=== PATIENT | male | born 1985 | race Caucasian/White ===

== ENCOUNTER 2016-07-09 11:58 | Outpatient (CLI) | payer OTHER ==
[2016-07-09 13:33] LABS: #Basophils 0.1 thou/uL (0.0-0.2); #Eosinphils 0.3 thou/uL (0.0-0.7); #Lymphocytes 3.5 thou/uL (1.20-3.40); #Monocytes 0.7 thou/uL (0.11-0.59); #Neutrophils 4.8 thou/uL (1.40-6.50); %Basophils 0.9 % (0.0-1.0); %Eosinophils 3.2 % (0.0-10.0); %Monocytes 7.5 % (0.0-10.0); Hematocrit 53.1 % (42.0-52.0); Mean Platelet Volume 6.3 fL (7.4-10.4); Red Blood Cell (RBC) Count 5.98 mill/uL (4.70-6.10); White Blood Cell (WBC) Count 9.4 thou/uL (4.8-10.8)
[2016-07-09 13:40] LABS: ALT (SGPT) 22 U/L (0-55); AST (SGOT) 12 U/L (5-34); Alkaline Phosphatase 48 U/L (40-150); Anion Gap 14 mmol/L (10-20); BUN (Urea Nitrogen) 14 mg/dL (8.9-20.6); Bilirubin, Total 0.6 mg/dL (0.2-1.2); Calc. Creatinine Clearance 0 mL/min (70-130); Calcium 9.4 mg/dL (7.8-10.44); Carbon Dioxide 24 mmol/L (22-29); Chloride 106 mmol/L (98-107); Estimated GFR-MDRD Greater than 90; Globulin 2.9 g/dL (2.4-3.5); Protein, Total 7.4 g/dL (6.0-8.3)
== END 2016-07-09 11:59 ==
LOC: HPCALD 11:58
PROVIDERS: ATTEND Family Medicine
DX: E11.9 Type 2 diabetes mellitus without complications (principal); I10 Essential (primary) hypertension; E78.00 Pure hypercholesterolemia, unspecified
CPT/HCPCS: 36415; 80053; 80061; 83036; 85025

== ENCOUNTER 2017-03-26 21:32 | Emergency (ER) | payer OTHER ==
[~2017-03-26 21:32] MED LIST: Iopamidol 370 76% 100 ML VIAL ONE
[2017-03-26] MEDS ORDERED: Morphine 2 MG/ML SYRINGE ONE (21:58)
[2017-03-26] MEDS ORDERED: diphenhydrAMINE 12.5 MG/5 ML UDCUP ONE (21:58)
[2017-03-26] MEDS ORDERED: diphenhydrAMINE 50 MG/ML VIAL ONE (22:01)
[2017-03-26 22:03] LABS: #Basophils 0.3 thou/uL (0.0-0.2); #Eosinphils 0.5 thou/uL (0.0-0.7); #Lymphocytes 4.9 thou/uL (1.20-3.40); #Monocytes 0.9 thou/uL (0.11-0.59); %Basophils 2.3 % (0.0-1.0); %Eosinophils 4.3 % (0.0-10.0); %Lymphocytes 38.6 % (21.0-51.0); %Monocytes 7.1 % (0.0-10.0); %Neutrophils 47.8 % (42.0-75.0); Mean Corpuscular HGB CONC 33.7 g/dL (32.0-36.0); Mean Corpuscular Hemoglobin 30.1 pg (27.0-31.0); Mean Corpuscular Volume 89.4 fl (80.0-94.0); Platelet Count 275 thou/uL (130-400); RBC Distribution Width 11.7 % (11.5-14.5); Red Blood Cell (RBC) Count 5.33 mill/uL (4.70-6.10); White Blood Cell (WBC) Count 12.6 thou/uL (4.8-10.8)
[2017-03-26 22:15] LABS: ALT (SGPT) 27 U/L (8-55); AST (SGOT) 17 U/L (5-34); Albumin 4.1 g/dL (3.5-5.0); Alcohol 66 mg/dL (Less than 10); Alkaline Phosphatase 46 U/L (40-150); Anion Gap 20 mmol/L (10-20); BUN (Urea Nitrogen) 11 mg/dL (8.9-20.6); Bilirubin, Total 0.3 mg/dL (0.2-1.2); Calc. Creatinine Clearance 0 mL/min (70-130); Calcium 9.2 mg/dL (7.8-10.44); Carbon Dioxide 17 mmol/L (22-29); Chloride 104 mmol/L (98-107); Estimated GFR-MDRD Greater than 90; Globulin 3.2 g/dL (2.4-3.5); Glucose 403 mg/dL (70-105); Potassium 3.5 mmol/L (3.5-5.1); Protein, Total 7.3 g/dL (6.0-8.3); Sodium 137 mmol/L (136-145)
[2017-03-26 22:17] LABS: CKMB 1.1 ng/mL (0-6.6); Troponin I Less than 0.010 ng/mL (< 0.028)
[2017-03-26 22:20] LABS: INR-International Normal Ratio 0.9; Prothrombin Time 11.8 SEC (12.0-14.7)
[2017-03-26 22:21] LABS: PTT 29.3 SEC (22.9-36.1)
[2017-03-26 22:29] LABS: D-Dimer Test 0.28 *mcg/mL (0.27-0.43)
[2017-03-26 22:49] LABS: Bilirubin Negative (Negative); Blood, Urine Negative (Negative); Clarity Clear (Clear); Glucose, Urine (Dipstick) 500 mg/dL (Negative); Leukocyte Negative (Negative); Nitrite Negative (Negative); Protein, Urine (Dipstick) Negative (Neg-Trace); Urobilinogen 0.2 mg/dL (0.2-1.0); pH, Urine 5.5 (5.0-9.0)
[2017-03-26 23:07] LABS: Amphetamine Not Detected (NotDetected); Barbiturates Screen Not Detected (NotDetected); Benzodiazepine Screen Not Detected (NotDetected); Cocaine Metabolite Screen Not Detected (NotDetected); Medtox Control Line Valid? VALID (VALID); Methadone Not Detected (NotDetected); Methamphetamine Not Detected (NotDetected); Opiate Screen Not Detected (NotDetected); Oxycodone Screen Not Detected (NotDetected); Phencyclidine (PCP) Not Detected (NotDetected); THC/Cannabinoid Screen Not Detected (NotDetected); Tricyclic Screen Not Detected (NotDetected)
[2017-03-27 01:20] LABS: Troponin I Less than 0.010 ng/mL (< 0.028)
--- NOTE | 2017-03-27 07:06 | CT ---
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 . . Ches t pain, dyspnea, weakness, been on mc ride since 11am; Has not eat or drank water today; Did have 2- 3 beers today. TECHNIQUE: Axial computed tomography images of the head/brain without intravenous contrast. COMPARISON: No relevant prior studies available. FINDINGS: No definite acute skull fracture. Included paranasal sinuses are essentially clear. No acute intracranial hemorrhage or mass effect. Ventricle size is normal for age. No definite acute infarct by CT. IMPRESSION: No acute intracranial bleed or mass effect. Thank you for allowing us to participate in the care of your patient. Dictated and Authenticated by: Jeremiah Garg MD 03/26/2017 11:17 PM Central Time ([place] \[place]\ [place]) FINAL REPORT CT OF THE BRAIN WITHOUT CONTRAST 03/26/2017 A non-contrast CT was performed following mental status changes and weakness. The ventricles are no rmal in size with no shift. No intracranial bleeding or extraaxial hematoma was seen. There is no sign of mass, edema, or stroke. The calvarium appears intact. The visible paranasal sinuses are cl ear. IMPRESSION: No acute intracranial findings. Report in agreement with the preliminary reading by [facility]. POS: HOME
--- NOTE | 2017-03-27 07:32 | RAD ---
PORTABLE CHEST: DATE: 03/26/17. FINDINGS: An AP portable film at 2148 is presented with no prior films available for comparison. He heart is normal in size. The slight haziness in the lungs is probably due to body habitus and a shallow breath. No major lobar infiltrates were seen. The mediastinum was unremarkable. The trach ea is midline. See CT of the chest report to follow. IMPRESSION: Shallow breath, but no definite acute finding. POS: HOME
--- NOTE | 2017-03-27 08:13 | CT ---
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 . . Chest pain, dyspnea, weakness, been on mc ride since 11am; Has not eat or drank water today; Did have 2-3 beers today. *d-dimer wi thin normal ranges* TECHNIQUE: Axial computed tomographic angiography images of the chest with intravenous contrast using pulmonary embolism protocol. All CT scans at this facility use one or more dose reduction techniques, viz.: a utomated exposure control; ma/kV adjustment per patient size (including targeted exams where dose is matched to indication; i.e. head); or iterative reconstruction technique. Coronal reformatted images were created and reviewed. Oblique reformatted images were created and reviewed. CONTRAST: 94 mL of ISOVUE 370 administered intravenously. COMPARISON: No relevant prior studies available. FINDINGS: No definite filling defect to suggest the diagnosis of acute pulmonary embolus. No evidence of thoracic aortic dissection or focal aneurysm. The left vertebral artery arises from the aortic arch, a normal variation. Some coronary artery calcifications are noted. No significant hilar or mediastinal lymphadenopathy. No evidence for pneumomediastinum or pneumothorax. Right lung: No significant parenchymal opacity or mass. No pleural fluid. Left lung: No significant parenchymal opacity or mass. No pleural fluid. There is fatty infiltration of the liver. Images that include the upper abdomen otherwise appear unremarkable. IMPRESSION: No evidence of acute pulmonary embolus. No evidence of thoracic aortic dissection or focal aneurysm. Coronary artery calcifications. Essentially clear lungs, no pleural fluid. Other findings discussed above. Thank you for allowing us to participate in the care of your patient. Dictated and Authenticated by: Jeremiah Garg MD 03/26/2017 11:32 PM Central Time ([place] \[place]\ [place]) FINAL REPORT CT ANGIO OF THE CHEST WITH CONTRAST: DATE: 03/26/17. FINDINGS: Spiral CT of the chest was performed in this patient with chest pain. Axial slices were acquired af ter a bolus of IV contrast. Oblique coronal reformations through the pulmonary arteries were done l ater. There is excellent opacification of the pulmonary arteries. No filling defects were seen to suggest emboli. The aorta shows no sign of aneurysm or dissection. No mediastinal mass or adenopathy was seen. 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 There are probably some coronary artery calcifications. The lungs are clear. A little haziness in the bases is most likely due to atelectasis. There are no effusions. Films in the upper abdomen show somewhat low density to the liver which may signify fatty infiltrati on. IMPRESSION: 1. No evidence of pulmonary embolism or aortic aneurysm. 2. Coronary artery calcifications. 3. Other findings as described above. Report in agreement with preliminary reading by [facility]. POS: HOME
== END 2017-03-27 02:17 | disposition home or self-care (01) ==
LOC: BURERS 21:32
DX: R07.2 Precordial pain (principal); E11.9 Type 2 diabetes mellitus without complications; I10 Essential (primary) hypertension; F17.210 Nicotine dependence, cigarettes, uncomplicated; Z79.84 Long term (current) use of oral hypoglycemic drugs; Z79.899 Other long term (current) drug therapy
CPT/HCPCS: 36416; 70450; 71010; 71275; 80053; 80306; 80307; 81003; 82553; 83880; 84443; 84484; 85025; 85379; 85610; 85730; 93005; 94760; 96361; 96374; 96375; A4216; J1200; J2270

== ENCOUNTER 2018-05-18 13:26 | Outpatient (CLI) | payer OTHER ==
--- NOTE | 2018-05-18 16:39 | RAD ---
RIGHT SHOULDER THREE VIEWS: Date: 05-18-18 FINDINGS: No fracture, dislocation, or AC joint widening was seen. There is no periarticular calcification. The adjacent ribs appear normal. IMPRESSION: No significant finding. POS: HOME
== END 2018-05-18 13:27 | disposition home or self-care (01) ==
LOC: BURRAD 13:26
PROVIDERS: ATTEND Family Medicine
DX: M25.511 Pain in right shoulder (principal)